=== PATIENT | female | born 1955 | race African-American/Black ===

== ENCOUNTER 2022-03-23 21:43 | Inpatient (IN) | payer MEDICARE ==
[~2022-03-23] VITALS: Ht 160 cm; Wt 44.7 kg
[~2022-03-23 21:43] MED LIST: AMLO2.5T45 MT; LISI2.5T47 MT
[2022-03-23] MEDS ORDERED: SODIUM CHLORIDE 0.9% 1,000 ML IV ONE (22:30)
[2022-03-23 23:47] LABS: CHLORIDE 107 mEq/L (98-107)
[2022-03-24] VITALS (9 sets, daily range): BP systolic 119–162; BP diastolic 50–96
[2022-03-24 00:28] LABS: BASOPHILS % 0.1 % (0.0-2.0); HEMOGLOBIN. 7.6 g/dL (12.0-16.0); MEAN CORPUSCULAR HEMOGLOBIN 31.7 pg (28.0-32.0); MEAN CORPUSCULAR VOLUME 95.7 fL (81.0-99.0); MEAN PLATELET VOLUME 6.9 fl (7.4-10.4); MONOCYTES % 4.6 % (2.0-8.0); NEUTROPHILS % 82.3 % (40.0-76.0); PLATELET 398 x1000/uL (130-400); RED BLOOD CELL COUNT 2.41 mill/uL (4.2-5.4); RED CELL DISTRIBUTION WIDTH 19.2 % (11.6-14.6)
[2022-03-24] MEDS ORDERED: AMLODIPINE 5MG TABLET PO ONE (02:15)
[2022-03-24] MEDS ORDERED: PANTOPRAZOLE SODIUM 40 MG/VIAL IV ONE (02:15)
[2022-03-24] MEDS ORDERED: PNEUMOCOCCAL 23-VAL P-SAC VAC 0.5 ML IM ONE (08:00)
[2022-03-24] MEDS ORDERED: INFLUENZA VACCINE 05/PF 0.5 ML SYRINGE IM ONE (08:00)
[2022-03-24] MEDS ORDERED: IPRATROPIUM/ALBUTEROL 0.5-3(2.5)MG/3ML NEB HHN PRN (10:45)
[2022-03-24] MEDS ORDERED: HYDRALAZINE 20MG/ML VIAL IV PRN (13:45)
[2022-03-24] MEDS: SODIUM CHLORIDE 0.9% 1,000 ML IV SCH (14:03)
[2022-03-24] MEDS ORDERED: METOCLOPRAMIDE HCL 10MG/2ML VIAL IV SCH (17:45)
[2022-03-24] MEDS ORDERED: SORBITOL 70% SOLN 30ML PO SCH (17:45)
[2022-03-24] MEDS ORDERED: BISACODYL 5MG TABLET PO SCH (17:45)
[2022-03-24] MEDS ORDERED: NALOXONE HCL 0.4MG/ML VIAL IV PRN (19:15)
[2022-03-24 20:06] LABS: CHLORIDE 107 mEq/L (98-107)
[2022-03-24 20:08] LABS: INR 1.1; PROTHROMBIN TIME 11.6 sec (9.6-11.0)
[2022-03-24 20:15] LABS: CREATINE KINASE 33 IU/L (26-192); CREATINE KINASE MB FRACTION 1.4 ng/mL (0.5-3.6)
[2022-03-24 20:22] LABS: BASOPHILS % 0.2 % (0.0-2.0); LYMPHOCYTES % 10.3 % (20.0-50.0); MEAN CORPUSCULAR HEMOGLOBIN 31.8 pg (28.0-32.0); MEAN CORPUSCULAR VOLUME 96.1 fL (81.0-99.0); MONOCYTES % 4.1 % (2.0-8.0); NEUTROPHILS % 85.4 % (40.0-76.0); PLATELET 437 x1000/uL (130-400); RED BLOOD CELL COUNT 1.82 mill/uL (4.2-5.4); RED CELL DISTRIBUTION WIDTH 19.6 % (11.6-14.6)
[2022-03-24 20:35] LABS: HEMATOCRIT. 17.5 % (36.0-48.0); HEMOGLOBIN. 5.8 g/dL (12.0-16.0)
[2022-03-24] MEDS ORDERED: POTASSIUM CHLORIDE 20MEQ/PACKET PO NR (20:45)
[2022-03-24] MEDS: AMLODIPINE 5MG TABLET PO SCH (21:15)
[2022-03-24] MEDS: ONDANSETRON HCL 4MG/2ML INJ IV PRN (21:31)
[2022-03-24] MEDS: MORPHINE SULFATE 2 MG/ML CPJ (NOT FOR IM USE) IV PRN (21:38)
[2022-03-25] VITALS (13 sets, daily range): BP systolic 100–156; BP diastolic 48–94
[2022-03-25] MEDS: ONDANSETRON HCL 4MG/2ML INJ IV PRN (02:22)
[2022-03-25] MEDS: SODIUM CHLORIDE 0.9% 1,000 ML IV SCH ×2 (06:46→23:44)
[2022-03-25] MEDS: MORPHINE SULFATE 2 MG/ML CPJ (NOT FOR IM USE) IV PRN ×2 (06:55→20:39)
[2022-03-25] MEDS ORDERED: LIDOCAINE HCL 1% 10 MG/ML 10ML VIAL ONE (07:48)
[2022-03-25] MEDS: AMLODIPINE 5MG TABLET PO SCH ×2 (09:00→21:00)
[2022-03-25] MEDS: PANTOPRAZOLE SODIUM 40 MG/VIAL IV SCH (09:00)
[2022-03-25 10:26] LABS: HEMATOCRIT. 32.8 % (36.0-48.0); HEMOGLOBIN. 11.4 g/dL (12.0-16.0); MEAN CORPUSCULAR HEMOGLOBIN 31.1 pg (28.0-32.0); MEAN CORPUSCULAR VOLUME 89.2 fL (81.0-99.0); MEAN PLATELET VOLUME 6.7 fl (7.4-10.4); PLATELET 354 x1000/uL (130-400); RED BLOOD CELL COUNT 3.67 mill/uL (4.2-5.4); RED CELL DISTRIBUTION WIDTH 16.1 % (11.6-14.6)
[2022-03-25 13:55] LABS: CHLORIDE 110 mEq/L (98-107)
[2022-03-25 14:05] LABS: PLATELET ESTIMATE NORMAL
[2022-03-25 14:06] LABS: CREATINE KINASE 41 IU/L (26-192)
[2022-03-25 14:17] LABS: CREATINE KINASE MB FRACTION 4.1 ng/mL (0.5-3.6)
[2022-03-26 03:42] VITALS: BP 115/66
[2022-03-26 06:55] LABS: BASOPHILS % 0.1 % (0.0-2.0); HEMATOCRIT. 31.5 % (36.0-48.0); HEMOGLOBIN. 10.6 g/dL (12.0-16.0); LYMPHOCYTES % 8.8 % (20.0-50.0); MEAN CORPUSCULAR HEMOGLOBIN 30.4 pg (28.0-32.0); MEAN CORPUSCULAR VOLUME 90.4 fL (81.0-99.0); MEAN PLATELET VOLUME 7.2 fl (7.4-10.4); MONOCYTES % 4.1 % (2.0-8.0); PLATELET 301 x1000/uL (130-400); RED BLOOD CELL COUNT 3.48 mill/uL (4.2-5.4); RED CELL DISTRIBUTION WIDTH 16.1 % (11.6-14.6)
[2022-03-26 08:00] VITALS: BP 123/58
[2022-03-26] MEDS: AMLODIPINE 5MG TABLET PO SCH ×2 (09:00→21:14)
[2022-03-26 09:14] LABS: CHLORIDE 114 mEq/L (98-107)
[2022-03-26] MEDS: PANTOPRAZOLE SODIUM 40 MG/VIAL IV SCH (09:30)
[2022-03-26 12:00] VITALS: BP 114/64
[2022-03-26] MEDS ORDERED: BISACODYL 10MG SUPP PR NR (13:00)
[2022-03-26] MEDS ORDERED: BISACODYL 5MG TABLET PO NR (13:00)
[2022-03-26 16:00] VITALS: BP 120/68
[2022-03-26] MEDS: MORPHINE SULFATE 2 MG/ML CPJ (NOT FOR IM USE) IV PRN ×2 (16:48→21:14)
[2022-03-26] MEDS: SODIUM CHLORIDE 0.9% 1,000 ML IV SCH (16:54)
[2022-03-26 20:00] VITALS: BP 128/77
[2022-03-27] VITALS: BP 113/87
[2022-03-27] MEDS: MORPHINE SULFATE 4 MG/ML CPJ (NOT FOR IM USE) IV PRN ×2 (02:45→07:59)
[2022-03-27 04:00] VITALS: BP 107/69
[2022-03-27 07:58] VITALS: BP 118/68
[2022-03-27] MEDS: PANTOPRAZOLE SODIUM 40 MG/VIAL IV SCH (08:00)
[2022-03-27 08:29] LABS: HEMATOCRIT. 37.8 % (36.0-48.0); HEMOGLOBIN. 12.8 g/dL (12.0-16.0); MEAN CORPUSCULAR HEMOGLOBIN 31.1 pg (28.0-32.0); MEAN CORPUSCULAR VOLUME 91.7 fL (81.0-99.0); MEAN PLATELET VOLUME 7.2 fl (7.4-10.4); PLATELET 327 x1000/uL (130-400); RED BLOOD CELL COUNT 4.12 mill/uL (4.2-5.4); RED CELL DISTRIBUTION WIDTH 17.7 % (11.6-14.6)
[2022-03-27 08:43] VITALS: BP 99/67
[2022-03-27 08:43] LABS: CHLORIDE 113 mEq/L (98-107)
[2022-03-27 09:33] VITALS: BP 50/43
[2022-03-27 09:36] VITALS: BP 40/20
[2022-03-27 12:21] LABS: PLATELET ESTIMATE NORMAL
== END 2022-03-27 12:57 | DRG 374 ==
LOC: ER 21:43 → 3WST 03-24 02:11 → ENRESERV 03-24 04:48
PROVIDERS: ADMIT Internal Medicine; ATTEND Internal Medicine
PROC: 30233N1 Transfusion of Nonautologous Red Blood Cells into Peripheral Vein, Percutaneous Approach (ICD-10-PCS; principal; 2022-03-24)
PROC: 02HV33Z Insertion of Infusion Device into Superior Vena Cava, Percutaneous Approach (ICD-10-PCS; 2022-03-25)
PROC: B548ZZA Ultrasonography of Superior Vena Cava, Guidance (ICD-10-PCS; 2022-03-25)
DX: C18.9 Malignant neoplasm of colon, unspecified (principal); E43 Unspecified severe protein-calorie malnutrition; K92.1 Melena; C78.7 Secondary malignant neoplasm of liver and intrahepatic bile duct; Z68.1 Body mass index [BMI] 19.9 or less, adult; C79.51 Secondary malignant neoplasm of bone; R18.8 Other ascites; K56.7 Ileus, unspecified; K56.600 Partial intestinal obstruction, unspecified as to cause; D25.9 Leiomyoma of uterus, unspecified; I10 Essential (primary) hypertension; E11.9 Type 2 diabetes mellitus without complications; F41.9 Anxiety disorder, unspecified; R59.0 Localized enlarged lymph nodes; E53.8 Deficiency of other specified B group vitamins; Z85.3 Personal history of malignant neoplasm of breast; Z79.84 Long term (current) use of oral hypoglycemic drugs; Z90.12 Acquired absence of left breast and nipple; D50.0 Iron deficiency anemia secondary to blood loss (chronic)
CPT/HCPCS: 36415; 80053; 85025; 99285; J7030; 36573; 71045; 74018; 74176; 80048; 82550; 82553; 84484; 85044; 86850; 86900; 86920; 90686; 90732; 93005; C1725; C9113; J2270; J2405; J2765; J3490; P9016